=== PATIENT | male | born 1985 | race Caucasian/White ===

== ENCOUNTER 2020-04-03 08:41 | Emergency (ER) | payer OTHER ==
--- NOTE | 2020-04-03 09:39 | EDM.PDOC ---
ED HPI GENERAL MEDICAL PROBLEM - General Chief Complaint: Respiratory Problem Stated Complaint: DIFFICULTY BREATHING, SWEATING Time Seen by Provider: 04/03/20 08:51 Source of Information: Reports: Patient History Limitations: Reports: No Limitations - History of Present Illness INITIAL COMMENTS - FREE TEXT/NARRATIVE: The patient presents with shortness of breath with exertion. He also has some diaphoresis with exertion. He did have a fever a over a week ago with a cough. He has no chest pain. He is under quarantine for COVID 19 exposure. He has no history of heart disease. He does not smoke. He has no history of HTN, hypercholesterolemia, or diabetes. Onset: Gradual Duration: Week(s): (1) Severity: Moderate Improves with: Reports: None Worsens with: Reports: None Associated Symptoms: Reports: Shortness of Breath. Denies: Chest Pain, Cough, Fever/Chills, Headaches, Nausea/Vomiting - Related Data Allergies Allergy/AdvReac Type Severity Reaction Status Date / Time No Known Allergies Allergy Verified 04/03/20 09:03 Home Meds: Home Meds . [No Known Home Meds] 04/03/20 [History] Past Medical History - Past Health History Medical/Surgical History: Denies Medical/Surgical History Social & Family History - Tobacco Use Smoking Status *Q: Never Smoker ED ROS GENERAL - Review of Systems Review Of Systems: See Below Constitutional: Reports: No Symptoms HEENT: Reports: No Symptoms Respiratory: Reports: Shortness of Breath. Denies: Cough Cardiovascular: Reports: No Symptoms Endocrine: Reports: No Symptoms GI/Abdominal: Reports: No Symptoms : Reports: No Symptoms ED EXAM, GENERAL - Physical Exam Exam: See Below Exam Limited By: No Limitations General Appearance: Alert, No Apparent Distress Ears: Normal External Exam Nose: Normal Inspection Head: Atraumatic, Normocephalic Neck: Normal Inspection Respiratory/Chest: No Respiratory Distress, Lungs Clear, Normal Breath Sounds Cardiovascular: Regular Rate, Rhythm, No Edema, No Murmur GI/Abdominal: Soft, Non-Tender, No Organomegaly, No Mass Back Exam: Normal Inspection Extremities: Normal Inspection EKG INTERPRETATION EKG Date: 04/03/20 Time: 09:19 Rhythm: NSR Rate (Beats/Min): 76 [place]: Normal P-Wave: Present QRS: Normal ST-T: Normal QT: Normal Course - Vital Signs Last Recorded V/S: Last Vital Signs Temp 97.4 F 04/03/20 08:52 Pulse 70 04/03/20 08:52 Resp 16 04/03/20 08:52 BP 126/93 H 04/03/20 08:52 Pulse Ox 96 04/03/20 08:52 - Orders/Labs/Meds Orders: Active Orders 24 hr Category Date Time Status Cardiac Monitoring [RC] . DIRECTED Care 04/03/20 09:07 Active EKG Documentation Completion [RC] STAT Care 04/03/20 09:07 Active Chest 1V Frontal [CR] Stat Exams 04/03/20 09:08 Taken Labs: Laboratory Tests 04/03/20 04/03/20 04/03/20 Range/Units 09:33 09:33 09:33 WBC 4.98 (4.23-9.07) K/mm3 RBC 4.98 (4.63-6.08) M/mm3 Hgb 15.2 (13.7-17.5) gm/dl Hct 43.4 (40.1-51.0) % MCV 87.1 (79.0-92.2) fl MCH 30.5 (25.7-32.2) pg MCHC 35.0 (32.2-35.5) g/dl RDW Std Deviation 38.5 (35.1-43.9) fL Plt Count 147 L (163-337) K/mm3 MPV 9.9 (9.4-12.3) fl Neut % (Auto) 60.1 (34.0-67.9) % Lymph % (Auto) 24.5 (21.8-53.1) % Bent % (Auto) 12.4 H (5.3-12.2) % Eos % (Auto) 2.8 (0.8-7.0) Baso % (Auto) 0.2 (0.1-1.2) % Neut # (Auto) 2.99 (1.78-5.38) K/mm3 Lymph # (Auto) 1.22 L (1.32-3.57) K/mm3 Bent # (Auto) 0.62 (0.30-0.82) K/mm3 Eos # (Auto) 0.14 (0.04-0.54) K/mm3 Baso # (Auto) 0.01 (0.01-0.08) K/mm3 Manual Slide Review Abnormal smear D-Dimer, Quantitative 0.31 (0.19-0.50) mg/L Sodium 140 (136-145) mEq/L Potassium 4.3 (3.5-5.1) mEq/L Chloride 105 (98-107) mEq/L Carbon Dioxide 28 (21-32) mEq/L Anion Gap 11.3 (5-15) BUN 15 (7-18) mg/dL Creatinine 1.3 (0.7-1.3) mg/dL Est Cr Clr Drug Dosing 94.79 mL/min Estimated GFR (MDRD) > 60 (>60) mL/min BUN/Creatinine Ratio 11.5 L (14-18) Glucose 104 (74-106) mg/dL Calcium 8.5 (8.5-10.1) mg/dL Total Bilirubin 1.0 (0.2-1.0) mg/dL AST 20 (15-37) U/L ALT 34 (16-63) U/L Alkaline Phosphatase 71 (46-116) U/L Troponin I < 0.017 (0.00-0.056) ng/mL C-Reactive Protein 1.2 H* (<1.0) mg/dL Total Protein 7.2 (6.4-8.2) g/dl Albumin 3.8 (3.4-5.0) g/dl Globulin 3.4 gm/dL Albumin/Globulin Ratio 1.1 (1-2) - Re-Assessments/Exams Free Text/Narrative Re-Assessment/Exam: 04/03/20 10:35 I ordered an EKG, CXR and labs. His EKG shows a NSR with no acute changes. His CXR shows no infiltrates. His CBC and CMP look good. His troponin and D-dimer are negative. His CRP is slightly elevated at 1.2. He does not want a COVID test. This could be a viral URI. I will discharge him home. Departure - Departure Time of Disposition: 10:40 Disposition: Home, Self-Care 01 Condition: Good Clinical Impression: Shortness of breath, Viral URI - Discharge Information *PRESCRIPTION DRUG MONITORING PROGRAM REVIEWED*: Not Applicable *COPY OF PRESCRIPTION DRUG MONITORING REPORT IN PATIENT LUIS: Not Applicable Referrals: PCP,None [Primary Care Provider] - Darwin Neves PA-C [Physician [employer]] - 1 Week Forms: ED Department Discharge Additional Instructions: Drink plenty of fluids. Take motrin or tylenol as needed for fever or pain. Please return if you are worse. Sepsis Event Note (ED) - Evaluation Sepsis Screening Result: No Definite Risk - Focused Exam Vital Signs: Vital Signs Temp Pulse Resp BP Pulse Ox 04/03/20 08:52 97.4 F 70 16 126/93 H 96 - My Orders Last 24 Hours: My Active Orders 04/03/20 09:07 Cardiac Monitoring [RC] . DIRECTED EKG Documentation Completion [RC] STAT 04/03/20 09:08 Chest 1V Frontal [CR] Stat - Assessment/Plan Last 24 Hours: My Active Orders 04/03/20 09:07 Cardiac Monitoring [RC] . DIRECTED EKG Documentation Completion [RC] STAT 04/03/20 09:08 Chest 1V Frontal [CR] Stat
--- NOTE | 2020-05-07 11:27 | CR ---
PROCEDURE INFORMATION: Exam: XR Chest, 1 View Exam date and time: 04/03/2020 8:54 AM Age: 34 years old Clinical indication: Chest pain TECHNIQUE: Imaging protocol: XR of the chest Views: 1 view. COMPARISON: No relevant prior studies available. FINDINGS: Lungs: The lungs are normally expanded and clear. Pleural space: Normal. Heart/Mediastinum: Normal heart and cardiomediastinal silhouette. Vasculature: Normal pulmonary vessel caliber. Normal aorta. Bones/joints: The bones are intact. IMPRESSION: No acute disease or suspicious finding. Thank you for allowing us to participate in the care of your patient. Dictated and Authenticated by: Art Nolen MD 05/07/2020 12:00 PM Central Time ([place] & [place]) [facility]ITALMeenakshi
== END 2020-04-03 10:58 | disposition home or self-care (01) ==
LOC: JD.ED 08:41
DX: R06.02 Shortness of breath (principal); J06.9 Acute upper respiratory infection, unspecified; R79.82 Elevated C-reactive protein (CRP)
CPT/HCPCS: 36415; 71045; 71045-26; 80053; 84484; 85025; 85379; 86140; 93005; 93010; 99282; 99285-25

== ENCOUNTER 2020-07-07 02:44 | Emergency (ER) | payer OTHER ==
[2020-07-07] MEDS ORDERED: Proparacaine 0.5% Ophth Soln 15 ML Bottle EYERT ONE (03:00)
[2020-07-07] MEDS ORDERED: Fluorescein 1 MG Ophth Strip EYERT ONE (03:00)
--- NOTE | 2020-07-07 03:07 | EDM.PDOC ---
ED HPI GENERAL MEDICAL PROBLEM - General Chief Complaint: ENT Problem Stated Complaint: RIGHT EYE HURTS Time Seen by Provider: 07/07/20 02:53 Source of Information: Reports: Patient History Limitations: Reports: No Limitations - History of Present Illness INITIAL COMMENTS - FREE TEXT/NARRATIVE: This is a 35-year-old male. He has been out drinking some this evening and when he got home he went to take out his contacts from his right eye and he believes he scratched it. He has been having increasing pain since this occurred so he comes to the ER for evaluation. He denies any other acute symptoms. 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 Right Eye Pain Score (Numeric/FACES): 9 - Related Data Allergies Allergy/AdvReac Type Severity Reaction Status Date / Time No Known Allergies Allergy Verified 07/07/20 02:55 Home Meds: Home Meds . [No Known Home Meds] 04/03/20 [History] Past Medical History - Past Health History Medical/Surgical History: Denies Medical/Surgical History Social & Family History - Tobacco Use Tobacco Use Status *Q: Never Tobacco User ED ROS ENT - Review of Systems Review Of Systems: Comprehensive ROS is negative, except as noted in HPI. ED EXAM, ENT - Physical Exam Exam: See Below Exam Limited By: No Limitations General Appearance: Alert, WD/WN, No Apparent Distress Eye Exam: Right Eye: Corneal Abrasion, Other (His pupils are reactive, there is no obvious foreign body on the cornea, with fluorescein stain they vertical faint abrasion starting just at the periphery top of the cornea going down until he is a large abrasion at the 6 o'clock position about the size of the end of an pencil eraser.) Ears: Normal External Exam Nose: Normal Inspection Mouth/Throat: Normal Inspection Head: Normocephalic Neck: Supple Respiratory/Chest: No Respiratory Distress Back: Full Range of Motion Extremities: Normal Inspection, Normal Range of Motion Neurological: Alert, Oriented Psychiatric: Normal Affect, Normal Mood Skin: Warm, Dry Course - Vital Signs Last Recorded V/S: Last Vital Signs Temp 97.3 F 07/07/20 02:53 Pulse 73 07/07/20 02:53 Resp 16 07/07/20 02:53 BP 137/82 07/07/20 02:53 Pulse Ox 97 07/07/20 02:53 - Re-Assessments/Exams Free Text/Narrative Re-Assessment/Exam: 07/07/20 03:13 I inspected the eye with a ophthalmoscope, there was no foreign body, fluorescein stain shows a large abrasion where it looks like he tried to take out his contact lens. There is no other acute findings. We did place some iván thromycin ointment and put an eye patch on his eye because he wants to touch it. I did speak to the regarding the aftercare with the eye patch and the artificial tears as a lubricant instead of rubbing his eye. Departure - Departure Time of Disposition: :07 Disposition: Home, Self-Care 01 Condition: Good Clinical Impression: Right corneal abrasion Qualifiers: Encounter type: initial encounter Qualified Code(s): S05.01XA - Injury of conjunctiva and corneal abrasion without foreign body, right eye, initial encounter - Discharge Information *PRESCRIPTION DRUG MONITORING PROGRAM REVIEWED*: Not Applicable *COPY OF PRESCRIPTION DRUG MONITORING REPORT IN PATIENT LUIS: Not Applicable Instructions: Corneal Abrasion, [id number] Referrals: PCP,None [Primary Care Provider] - Additional Instructions: Keep the eye patch on for 24 hours or more, once the eye patch comes off he cannot be rubbing his eye otherwise we will continue the abrasion, get some artificial tears which is just [id number] lubricant for the eye and when the eye is irritated after he takes the patch off and use the drops instead of rubbing the eye, follow-up with his family doctor later this week for recheck or return to the ER if needed Sepsis Event Note (ED) - Evaluation Sepsis Screening Result: No Definite Risk - Focused Exam Vital Signs: Vital Signs Temp Pulse Resp BP Pulse Ox 07/07/20 02:53 97.3 F 73 16 137/82 97
[2020-07-07] MEDS ORDERED: Erythromycin Base 0.5% Ophth Oint 1 GM Tube EYERT ONE (03:09)
== END 2020-07-07 03:36 | disposition home or self-care (01) ==
LOC: JD.ED 02:44
DX: S05.01XA Injury of conjunctiva and corneal abrasion without foreign body, right eye, initial encounter (principal); X58.XXXA Exposure to other specified factors, initial encounter
CPT/HCPCS: 99283; A9270